=== PATIENT | female | born 1950 | race Hispanic/Latino ===

== ENCOUNTER 2019-02-15 09:17 | Day surgery (SDC) | payer OTHER, MEDICARE ==
[~2019-02-15] VITALS: Ht 157.5 cm; Wt 81.2 kg
[~2019-02-15 09:17] MED LIST: CHOL100040 PO; FLUT12AE IH; LIDOCAINE HCL 1% 20 ML VIAL ONE; LISI1TAB32 PO; METF-526 PO; PRAV40TA3 PO; PROPOFOL 10 MG/ML 20ML VIAL IV ONE; SODIUM CHLORIDE 0.9% 1000ML 0 ML IV ONE; SODIUM CHLORIDE 0.9% 1000ML 1,000 ML IV ONE; TIOT18CA3 IH
[2019-02-15 10:30] VITALS: BP 124/72
[2019-02-15 12:31] VITALS: BP 111/55
[2019-02-15 12:36] VITALS: BP 117/63
[2019-02-15 12:41] VITALS: BP 124/63
[2019-02-15 12:46] VITALS: BP 120/63
== END 2019-02-15 13:10 | disposition home or self-care (01) ==
LOC: ENDO 09:17 → DAH 09:17 → ENDO 13:10
PROVIDERS: ATTEND Internal Medicine Gastroenterology
DX: K29.50 Unspecified chronic gastritis without bleeding (principal); K31.89 Other diseases of stomach and duodenum; K44.9 Diaphragmatic hernia without obstruction or gangrene; K21.9 Gastro-esophageal reflux disease without esophagitis; E11.9 Type 2 diabetes mellitus without complications; I10 Essential (primary) hypertension; F17.210 Nicotine dependence, cigarettes, uncomplicated; Z79.899 Other long term (current) drug therapy; Z79.2 Long term (current) use of antibiotics; Z79.84 Long term (current) use of oral hypoglycemic drugs; Z83.3 Family history of diabetes mellitus
CPT/HCPCS: 43239; 82948 ×2; 88305; A4606; J2704; J7030